=== PATIENT | female | born 1965 | race Caucasian/White ===

== ENCOUNTER 2018-01-04 16:13 | Emergency (ER) | payer OTHER ==
--- OUTSIDE RECORDS SUMMARY | 2018-01-04 16:15 | XMS REPORT | Clinical Summary ---
:1965 Author Organization [facility] Address [address] [place] [address] Care Team Providers Name Role Phone Maris Godfrey MD Primary Care Provider Allergies Active Allergy Reactions Severity Noted Date Comments Aspirin 09/11/2015 Iodine 09/11/2015 Medications Medication Sig Dispensed Refills Start Date End Date Status levothyroxine Take 1 tablet 90 tablet 3 02/24/2017 Active (SYNTHROID, LEVOXYL) (175 mcg 175 mcg total) by tabletIndications: mouth once Non-toxic goiter daily. levothyroxine Take 1 tablet 90 tablet 3 07/29/2016 02/24/2017 Discontinued (SYNTHROID, LEVOXYL) (175 mcg 175 mcg total) by tabletIndications: mouth once Non-toxic goiter daily. levothyroxine TAKE 1 TABLET 90 tablet 0 01/10/2017 02/24/2017 Discontinued (SYNTHROID, LEVOXYL) BY MOUTH 175 mcg EVERY DAY tabletIndications: Non-toxic goiter Active Problems Problem Noted Date History of bilateral breast implants 12/13/2017 Encounter for screening mammogram for breast cancer 05/11/2016 Family history of breast cancer 05/11/2016 Diabetes mellitus 10/01/2015 Morbid obesity 10/01/2015 HLD (hyperlipidemia) 10/21/2011 Obesity, diabetes, and hypertension syndrome 10/21/2011 Benign essential HTN 02/23/2011 Hypothyroidism, postablative 02/23/2011 Toxic diffuse goiter 02/23/2011 Uncontrolled type 2 diabetes mellitus 02/23/2011 Disorder of bone and articular cartilage 02/23/2011 Sleep apnea 02/23/2011 Encounters Date Type Specialty Care Team Description 12/13/2017 Office Visit General Surgery Kempner, Ami Encounter for screening mammogram for breast cancer (Primary Dx); MD Bernice History of bilateral breast implants; Family history of breast cancer; Obesity, diabetes, and hypertension syndrome (HCC) 02/24/2017 Office Visit Endocrinology Korin Alves NP Type 2 diabetes mellitus without complication, without long-term current use of insulin ( Primary Dx); Acquired hypothyroidism; Obesity (BMI 35.0-39.9 without comorbidity); Non-toxic goiter 02/23/2017 Orders Only Endocrinology Korin Alves NP 01/10/2017 Refill Endocrinology Korin Alves NP Non-toxic goiter 01/07/2017 Orders Only Endocrinology Korin Alves NP Uncontrolled type 2 diabetes mellitus without complication, without long-term current use of insulin; Non-toxic goiter; Over weight after 01/03/2017 Immunizations Name Dates Previously Given Next Due FLUCELVAX QUAD PF (0.5mL syringe) 12/11/2015 Influenza Trivalent 04/13/2010, 12/22/2009 Family History Medical History Relation Name Comments Breast cancer Cousin Hypertension Father Diabetes Mother Hypertension Mother Relation Name Status Comments Cousin paternal first Father Mother Social History Tobacco Use Types Packs/Day Years Used Date Former Smoker Smokeless Tobacco: Never Used Alcohol Use Drinks/Week oz/Week Comments No Sex Assigned at Date Recorded Not on file Job Start Date Occupation Industry Not on file Not on file Not on file Travel History Travel Start Travel End No recent travel history available. Last Filed Vital Signs Vital Sign Reading Time Taken Blood Pressure 163/91 12/13/2017 2:59 PM CDT Pulse 82 12/13/2017 2:59 PM CDT Temperature 36.3 C (97.3 F) 02/24/2017 1:58 PM [employer] Respiratory Rate - - Oxygen Saturation 100% 02/24/2017 1:58 PM [employer] Inhaled Oxygen Concentration - - Weight 95.3 kg (210 lb) 12/13/2017 2:59 PM CDT Height 160 cm (5' 3") 12/13/2017 2:59 PM CDT Body Mass Index 37.2 12/13/2017 2:59 PM CDT Plan of Treatment Date Type Specialty Care Team Description 12/19/2018 Office Visit [place] [address] [facility] [address] [place] [address] [phone] Health Maintenance Due Date Last Done Comments DIABETIC RETINAL EYE EXAM 1965 MMR VACCINES (1 of 1 - 1965 Standard series) URINE MICROALBUMIN 1974 VARICELLA VACCINES (1 of 2 - 1977 2-dose adolescent series) HEPATITIS B VACCINES (1 of 3 06/18/1983 - Risk 3-dose series) CERVICAL CANCER SCREENING 1985 DIABETIC FOOT EXAM 01/23/2014 01/23/2013 COLON CANCER SCREENING 2014 SHINGRIX VACCINE (1 of 2) 2014 INFLUENZA VACCINE 09/14/2017 12/11/2015, 04/13/2010, 12/22/2009 BREAST CANCER SCREENING 12/14/2019 12/13/2017, 09/08/2016, 09/08/2016, Additional history exists IPV VACCINES Aged Out No longer eligible based on patient's age to complete this topic MENINGOCOCCAL VACCINE Aged Out No longer eligible based on patient's age to complete this topic Procedures Procedure Name Priority Date/Time Associated Comments Diagnosis POC GLYCOSYLATED Routine 02/24/2017 2:03 Type 2 diabetes Results for this HEMOGLOBIN (HGB A1C) PM [employer] mellitus without procedure are in complication, the results without long-term section. current use of insulin POC GLUCOSE Routine 02/24/2017 2:01 Type 2 diabetes Results for this PM [employer] mellitus without procedure are in complication, the results without long-term section. current use of insulin COMPREHENSIVE Routine 02/23/2017 7:44 Results for this METABOLIC PANEL AM [employer] procedure are in the results section. THYROID STIMULATING Routine 02/23/2017 7:44 Results for this HORMONE [facility] [employer] procedure are in the results section. T4, FREE Routine 02/23/2017 7:44 Results for this AM [employer] procedure are in the results section. after 01/03/2017 Results POC glycosylated hemoglobin (Hb A1C) (02/24/2017 2:03 [employer]) POC Hemoglobin A1C 6.4 % Specimen Blood POC glucose (02/24/2017 2:01 [employer]) POC glucose 109 65 - 100 Specimen Blood Thyroid stimulating hormone (02/23/2017 7:44 [employer]) TSH 2.21 mIU/L [employer] [facility] Comment: Reference Range > or=20 Years0.40-4.50 Ranges First trimester0.26-2.66 Second trimester 0.55-2.73 Third trimester0.43-2.91 Narrative Performed At FASTING:YES [facility] FASTING: YES Resulting Agency Comment Performing Organization Information: Site ID: [id number] Name: [facility] Address: [address] [place] [id number] Director: Tiffanie Alicea MD Performing Organization Address [facility] Phone Number [employer] [address] T4, free (02/23/2017 7:44 [facility] [employer]) T4, free 1.3 0.8 - 1.8 ng/dL [employer] [facility] Narrative Performed At FASTING:YES [facility] FASTING: YES Resulting Agency Comment Performing Organization Information: Site ID: [id number] Name: [facility] Address: [address] [place] [phone] Director: Tiffanie Alicea MD Performing Organization Address [facility] Phone Number [facility] [employer] [address] Comprehensive metabolic panel (02/23/2017 7:44 [facility] [employer]) Glucose 130 (H) 65 - 99 mg/dL [employer] Comment: [facility] Fasting reference interval For someone without known diabetes, a glucose value >125 mg/dL indicates that they may have diabetes and this should be confirmed with a follow-up test. BUN, whole blood 16 7 - 25 mg/dL [employer] [facility] Creatinine 0.58 0.50 - 1.05 [employer] Comment: mg/dL [facility] For patients >49 years of age, the reference limit for Creatinine is approximately 13% higher for people identified as -Ukrainian. EGFR Non-Afr. Ukrainian 106 > OR=60 [facility] mL/min/1.73m2 [facility] EGFR 123 > OR=60 [facility] mL/min/1.73m2 [facility] BUN/creatinine ratio NOT APPLICABLE 6 - 22 (calc) [employer] [facility] Sodium 145 135 - 146 mmol/L [employer] [facility] Potassium 5.2 3.5 - 5.3 mmol/L [facility] Chloride 105 98 - 110 mmol/L [employer] [facility] CO2 26 20 - 31 mmol/L [employer] [facility] Calcium 9.7 8.6 - 10.4 mg/dL [facility] Protein 7.5 6.1 - 8.1 g/dL [facility] Albumin, S 4.3 3.6 - 5.1 g/dL [employer] [facility] Globulin, total 3.2 1.9 - 3.7 g/dL [facility] (calc) [facility] Albumin/globulin ratio 1.3 1.0 - 2.5 (calc) [facility] Total bilirubin 0.4 0.2 - 1.2 mg/dL [facility] Alkaline phosphatase 75 33 - 130 U/L [employer] [facility] AST 20 10 - 35 U/L [employer] [facility] ALT 25 6 - 29 U/L [employer] [facility] Narrative Performed At FASTING:YES [facility] FASTING: YES Resulting Agency Comment Performing Organization Information: Site ID: [id number] Name: [facility] Address: [address] [place] [phone] Director: Tiffanie Alicea MD Performing Organization Address City/State/Zipcode Phone Number [employer] [facility] [address] [place] [phone] after 01/03/2017 Insurance Payer Benefit Plan / Group Subscriber ID Type Phone Address [employer] AETNA PPO OPEN CHOICE xxxxxxxxxx PPO ([id number]) [place] [address] Advance Directives Patient has advance care planning documents on file. For more information, please contact:[place] [address]
--- NOTE | 2018-01-04 17:45 | EDPHYS ---
Physician Documentation [facility] Name: Wendy Gutierrez Age: 52 yrs Sex: Female : 1965 Arrival Date: 01/04/2018 Time: 16:16 Bed 30 Private MD: ED Physician Rodolfo Heredia HPI: 01/04 17:43 This 52 yrs old Female presents to ER via Ambulatory with complaints of Nose kb Bleed. 17:43 The patient presents with a nose bleed, that is apparently posterior, from both nares, kb and the bleeding resolved prior to arrival. Onset: The symptoms/episode began/occurred yesterday. Modifying factors: The symptoms are alleviated by nothing. the symptoms are aggravated by nothing. Associated signs and symptoms: The patient has no apparent associated signs or symptoms, Loss of consciousness: the patient experienced no loss of consciousness. Severity of symptoms: At their worst the symptoms were mild moderate in the emergency department the symptoms have resolved. The patient has not experienced similar symptoms in the past. The patient has not recently seen a physician. 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 - Social history:: Smoking status: Patient/guardian denies using tobacco. - Ebola Screening: : Patient denies travel to an Ebola-affected area in the 21 days before illness onset. ROS: 17:43 Constitutional: Negative for fever, chills, and weight loss, Neck: Negative for injury, kb pain, and swelling, Cardiovascular: Negative for chest pain, palpitations, and edema, Respiratory: Negative for shortness of breath, cough, wheezing, and pleuritic chest pain, Abdomen/GI: Negative for abdominal pain, nausea, vomiting, diarrhea, and constipation, Back: Negative for injury and pain, MS/Extremity: Negative for injury and deformity, Skin: Negative for injury, rash, and discoloration, Neuro: Negative for headache, weakness, numbness, tingling, and seizure. 17:43 ENT: Positive for nose bleed. Exam: 17:43 Constitutional: This is a well developed, well nourished patient who is awake, alert, kb and in no acute distress. Head/Face: Normocephalic, atraumatic. ENT: Nares patent. No nasal discharge, no septal abnormalities noted. Tympanic membranes are normal and external auditory canals are clear. Oropharynx with no redness, swelling, or masses, exudates, or evidence of obstruction, uvula midline. Mucous membranes moist. Neck: Trachea midline, no thyromegaly or masses palpated, and no cervical lymphadenopathy. Supple, full range of motion without nuchal rigidity, or vertebral point tenderness. No Meningismus. Chest/axilla: Normal chest wall appearance and motion. Nontender with no deformity. No lesions are appreciated. Cardiovascular: Regular rate and rhythm with a normal S1 and S2. No gallops, murmurs, or rubs. Normal PMI, no JVD. No pulse deficits. Respiratory: Lungs have equal breath sounds bilaterally, clear to auscultation and percussion. No rales, rhonchi or wheezes noted. No increased work of breathing, no retractions or nasal flaring. Abdomen/GI: Soft, non-tender, with normal bowel sounds. No distension or tympany. No guarding or rebound. No evidence of tenderness throughout. Skin: Warm, dry with normal turgor. Normal color with no rashes, no lesions, and no evidence of cellulitis. MS/ Extremity: Pulses equal, no cyanosis. Neurovascular intact. Full, normal range of motion. Neuro: Awake and alert, GCS 15, oriented to person, place, time, and situation. Cranial nerves II-XII grossly intact. Motor strength 5/5 in all extremities. Sensory grossly intact. Cerebellar exam normal. Normal gait. Vital Signs: 16:34 BP 170 / 78; Pulse 74; Resp 18; Temp 97.8; Pulse Ox 99% on R/A; Weight 95.25 kg (R); aj1 Height 5 ft. 3 in. (160.02 cm) (R); Pain 0/10; 16:34 Body Mass Index 37.20 (95.25 kg, 160.02 cm) aj1 MDM: 17:09 Patient medically screened. kb 17:42 Data reviewed: vital signs, nurses notes. Data interpreted: Pulse oximetry: on room air kb is 99 %. Interpretation: normal. Counseling: I had a detailed discussion with the patient and/or guardian regarding: the historical points, exam findings, and any diagnostic results supporting the discharge/admit diagnosis, the need for outpatient follow up, an ENT specialist, to return to the emergency department if symptoms worsen or persist or if there are any questions or concerns that arise at home. Administered Medications: No medications were administered Disposition: 01/04/18 17:45 Discharged to Home. Impression: Epistaxis. - Condition is Stable. - Discharge Instructions: Nosebleed, [id number]. - Medication Reconciliation Form, Thank You Letter, Antibiotic Education, Prescription Opioid Use form. - Follow up: Emergency Department; When: As needed; Reason: Worsening of condition. Follow up: Private Physician; When: 2 - 3 days; Reason: Recheck today's complaints, Continuance of care, Re-evaluation by your physician. Addendum: 01/09/2018 08:04 Co-signature as Attending Physician, Rodolfo Heredia MD I agree with the assessment and c fisher plan of care. Signatures: Yumiko Olivier, MALIK-C MALIK-Shobha Sotomayor, RN RN aj1 Rodolfo Heredia MD MD cha Williams, Irene, RN RN iw Corrections: (The following items were deleted from the chart) 01/04 18:01 17:45 01/04/2018 17:45 Discharged to Home. Impression: Epistaxis. Condition is Stable. iw Forms are Medication Reconciliation Form, Thank You Letter, Antibiotic Education, Prescription Opioid Use. Follow up: Emergency Department; When: As needed; Reason: Worsening of condition. Follow up: Private Physician; When: 2 - 3 days; Reason: Recheck today's complaints, Continuance of care, Re-evaluation by your physician. kb
--- NOTE | 2018-01-04 17:45 | ER ---
Nurse's Notes [facility] Name: Wendy Gutierrez Age: 52 yrs Sex: Female : 1965 Arrival Date: 01/04/2018 Time: 16:16 Bed 30 Private MD: Diagnosis: Epistaxis Presentation: 01/04 16:31 Presenting complaint: Patient states: "Yesterday I started having a nose bleed. I never aj1 had a nose bleed. It bleed for 15- 20 minutes. Today I could feel it running, and then about an hour ago it started again and it wouldn't quit so I called my doctor, she told me to go to the ENT but they were closed" No bleeding noted at this time. Transition of care: patient was not received from another setting of care. Onset of symptoms was January 03, 2018. Risk Assessment: Do you want to hurt yourself or someone else? Patient reports no desire to harm self or others. Initial Sepsis Screen: Does the patient meet any 2 criteria? No. Patient's initial sepsis screen is negative. Does the patient have a suspected source of infection? No. Patient's initial sepsis screen is negative. Care prior to arrival: None. 16:31 Method Of Arrival: Ambulatory aj1 16:31 Acuity: MADHU 4 aj1 Triage Assessment: 16:34 General: Appears in no apparent distress. comfortable, Behavior is calm, cooperative, aj1 appropriate for age. Pain: Denies pain. Neuro: Level of Consciousness is awake, alert, obeys commands. Cardiovascular: Patient's skin is warm and dry. Respiratory: Airway is patent Respiratory effort is even, unlabored, Respiratory pattern is regular, symmetrical. 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 - Social history:: Smoking status: Patient/guardian denies using tobacco. - Ebola Screening: : Patient denies travel to an Ebola-affected area in the 21 days before illness onset. Screenin:40 Abuse screen: Denies threats or abuse. Denies injuries from another. Nutritional iw screening: No deficits noted. Tuberculosis screening: No symptoms or risk factors identified. Fall Risk None identified. Assessment: 17:40 General: Appears in no apparent distress. comfortable, Behavior is calm, cooperative. iw Pain: Denies pain. Neuro: Level of Consciousness is awake, alert, obeys commands, Oriented to person, place, time, situation, Moves all extremities. Full function. Cardiovascular: Patient's skin is warm and dry. Respiratory: Respiratory effort is even, unlabored, Respiratory pattern is regular, symmetrical. GI: No signs and/or symptoms were reported involving the gastrointestinal system. Derm: Skin is intact, is healthy with good turgor. Musculoskeletal: Range of motion: intact in all extremities. Vital Signs: 16:34 BP 170 / 78; Pulse 74; Resp 18; Temp 97.8; Pulse Ox 99% on R/A; Weight 95.25 kg (R); aj1 Height 5 ft. 3 in. (160.02 cm) (R); Pain 0/10; 16:34 Body Mass Index 37.20 (95.25 kg, 160.02 cm) aj1 ED Course: 16:16 Patient arrived in ED. mr 16:33 Triage completed. aj1 16:34 Arm band placed on Patient placed in waiting room, Patient notified of wait time. aj1 16:46 [facility]ier [facility]C [facility]. kb 16:46 Rodolfo Heredia MD is Attending Physician. kb 17:09 Evonne Lim, RN is Primary Nurse. iw 17:40 Patient has correct armband on for positive identification. iw 17:40 No provider procedures requiring assistance completed. Patient did not have IV access iw during this emergency room visit. Administered Medications: No medications were administered Outcome: 17:45 Discharge ordered by . kb 18:00 Discharged to home ambulatory. iw 18:00 Condition: good 18:00 Discharge instructions given to patient, Instructed on discharge instructions, follow up and referral plans. Demonstrated understanding of instructions, follow-up care. 18:01 Patient left the ED. iw Signatures: Yumiko Olivier FNP-C FNP-Ckb Johnson, Angela, RN RN aj1 Alfaro, Donna mr Evonne Lim, MALLORY RN iw
== END 2018-01-04 18:01 | disposition home or self-care (01) ==
LOC: ER 16:13
DX: R04.0 Epistaxis (principal); E03.9 Hypothyroidism, unspecified; E11.9 Type 2 diabetes mellitus without complications; Z88.6 Allergy status to analgesic agent; Z91.048 Other nonmedicinal substance allergy status
CPT/HCPCS: 99281